=== PATIENT | male | born 1995 | race African-American/Black ===

== ENCOUNTER 2020-03-19 14:53 | Emergency (ER) | payer SELFPAY ==
--- NOTE | 2020-03-19 14:59 | ER Document Report ---
ED General - General Chief Complaint: Vomiting Stated Complaint: VOMITING Time Seen by Provider: 03/19/20 14:59 Primary Care Provider: BAL GANT MD [COMMUNITY BASED STAFF] - Follow up tomorrow ANIL CONNELLY MD [COMMUNITY BASED STAFF] - Follow up as needed - [facility] Notes: 24-year-old male presents to the emergency room today for complaints of feeling dehydrated after drinking 240 ounce beers and taking 30 mg Percocet last night, states he was outside today and he started to feel his heart race. Patient states that he drinks 1520 ounce glasses of water. He initially called EMS and they advised him to just monitor. He called them back 15 minutes later and they brought him to the emergency room today. Patient states his last BM was this morning. Patient denies any cardiac history. States sometimes he feels today like his heart was racing. Aside from the Percocet denies any other illicit drug use. Denies fevers, chills, chest pain shortness of breath, dyspnea, nausea, vomiting, diarrhea, abdominal pain, hematuria,blurred vision, double vision, loss of vision, speech changes, LH, dizziness, syncope, headaches, wheezing, ST, URI, neck pain, weakness, bowel or bladder dysfunction, saddle anesthesia, numbness or tingling in bilateral upper or lower extremities equally, muscle paralysis, weakness in bilateral upper or lower extremities equally or rash. Denies IV drug use. MEDICATIONS: I agree with the patient medications as charted by the RN. ALLERGIES: I agree with the allergies as charted by the RN. PAST MEDICAL HISTORY/PAST SURGICAL HISTORY: Reviewed and agree as charted by RN. SOCIAL HISTORY: Reviewed and agree as charted by RN. FAMILY HISTORY: No significant familial comorbid conditions directly related to patient complaint EXAM: Reviewed vital signs as charted by RN. REVIEW OF SYSTEMS:reviewed vital signs by RN CONSTITUTIONAL : Denies fever, chills, or sweats. Denies recent illness. EENT: Denies eye, ear, throat, or mouth pain or symptoms. Denies nasal or sinus congestion or discharge. Denies throat, tongue, or mouth swelling or difficulty swallowing. CARDIOVASCULAR: Denies chest pain. Denies palpitations or racing or irregular heart beat. Denies ankle edema. RESPIRATORY: Denies cough, cold, or chest congestion. Denies shortness of breath, difficulty breathing, or wheezing. GASTROINTESTINAL: Denies abdominal pain or distention. Denies nausea, vomiting, or diarrhea. Denies blood in vomitus, stools, or per rectum. Denies black, tarry stools. Denies constipation. GENITOURINARY: Reports increased urination. denies difficulty urinating, painful urination, burning, frequency, blood in urine, or discharge. MUSCULOSKELETAL: Denies back or neck pain or stiffness. Denies joint pain or swelling. SKIN: Denies rash, lesions or sores. HEMATOLOGIC : Denies easy bruising or bleeding. LYMPHATIC: Denies swollen, enlarged glands. NEUROLOGICAL: Denies confusion or altered mental status. Denies passing out or loss of consciousness. Denies dizziness or lightheadedness. Denies headache. Denies weakness or paralysis or loss of use of either side. Denies problems with gait or speech. Denies sensory loss, numbness, or tingling. Denies seizures. PSYCHIATRIC: Denies anxiety or stress. Denies depression, suicidal ideation, or homicidal ideation. ALL OTHER SYSTEMS REVIEWED AND NEGATIVE. Dictation was performed using [employer] voice recognition software PHYSICAL EXAMINATION: GENERAL: Well-appearing, well-nourished and in no acute distress. HEAD: Atraumatic, normocephalic. EYES: Pupils equal round and reactive to light, extraocular movements intact, sclera anicteric, conjunctiva are normal. ENT: Nares patent, oropharynx clear without exudates. Moist mucous membranes. NECK: Normal range of motion, supple without lymphadenopathy LUNGS: Breath sounds clear to auscultation bilaterally and equal. No wheezes ra les or rhonchi. HEART: Regular rate and rhythm without murmurs ABDOMEN: Soft, nontender, nondistended abdomen. No guarding, no rebound. No masses appreciated. Musculoskeletal: Normal range of motion, no pitting or edema. No cyanosis. NEUROLOGICAL: Cranial nerves grossly intact. Normal speech, normal gait. Normal sensory, motor exams PSYCH: Normal mood, normal affect. SKIN: Warm, Dry, normal turgor, no rashes or lesions noted. - Related Data Allergies/Adverse Reactions: No Known Allergies Allergy (Verified 03/19/20 15:11) Past Medical History - General Information source: Patient - Social History Smoking Status: Unknown if Ever Smoked Family History: Reviewed & Not Pertinent Physical Exam - Vital signs Vitals: Temp Pulse Resp BP Pulse Ox 97.6 F 86 16 147/84 H 99 03/19/20 15:00 03/19/20 15:00 03/19/20 15:00 03/19/20 15:00 03/19/20 15:00 Course - Re-evaluation Re-evalutation: 03/19/20 16:36 Afebrile vital stable no distress. Nurses notes reviewed. CBC negative for leukocytosis or anemia, CMP negative for hepatic or renal dysfunction. Magnesium was normal. urinalysis is normal, specific gravity is 1.001, patient is very hydrated. Otherwise urinalysis is unremarkable. Chest x-ray unremarkable troponin 0.012. Urine drug screen does show that patient tested positive for amphetamines. TSH was slightly showing hyperthyroidism, his free T3 3 was normal. EKG shows a heart rate of 88, sinus rhythm. No prior EKG to compare to. Patient has a heart score 0. Has a 0.9-1.7 risk of adverse cardiac event. Discussed with patient that he should not be taking methamphetamines unless it is prescribed to him. Advised to hold off from drinking so much fluid, but his electrolytes are completely normal. No hepatic or renal dysf unction. After performing a Medical Screening Examination, I estimate there is LOW risk for RUPTURED ESOPHAGUS, PNEUMOTHORAX, PULMONARY EMBOLISM, ACUTE CORONARY SYNDROME, OR THORACIC AORTIC DISSECTION, thus I consider the discharge disposition reasonable. I have reevaluated this patient multiple times and no significant life threatening changes are noted. The patient and I have discussed the diagnosis and risks, and we agree with discharging home with close follow- up. We also discussed returning to the Emergency Department immediately if new or worsening symptoms occur. We have discussed the symptoms which are most concerning (e.g., bloody sputum, worsening pain or shortness of breath) that necessitate immediate return. 03/19/20 19:32 - Vital Signs Vital signs: Temp Pulse Resp BP Pulse Ox 97.6 F 86 20 137/83 H 98 03/19/20 15:11 03/19/20 15:00 03/19/20 18:00 03/19/20 17:01 03/19/20 18:00 - Laboratory Result Diagrams: 03/19/20 15:15 03/19/20 15:15 Laboratory results interpreted by me: 03/19/20 15:15 TSH 0.32 L - EKG Interpretation by Me EKG shows normal: Sinus rhythm Rate: Normal Rhythm: NSR When compared to previous EKG there are: Previous EKG unavailable Additional EKG results interpreted by me: 03/19/20 16:[address] segment elevation. HR 88 03/19/20 16:31 Discharge - Discharge Clinical Impression: Dehydration, Methamphetamine use, Palpitations Condition: Good Disposition: HOME, SELF-CARE Instructions: Dehydration ([facility]), Palpitations (Irregular or Rapid Heartrate) ([facility]) Additional Instructions: All of your lab work was normal aside from your thyroid level showed slight hyperthyroidism. please follow up with your pcp regarding this. your urine did show that you had amphetamines in your system, this likely could be precipitating your palpitations. Is advised that you discontinue using any amphetamine use. You are fully hydrated, there is no need for you to be drinking 15 glasses of water at once. Only drink when you are thirsty. Due to the excessive amount of water you drink this is why you are urinating so much. Please follow-up with your primary care provider within the next 24 to 48 hours. Return immediately for any new or worsening symptoms. Follow up with primary care provider, call tomorrow to make followup appointment. Referrals: BAL GANT MD [COMMUNITY BASED STAFF] - Follow up tomorrow ANIL CONNELLY MD [COMMUNITY BASED STAFF] - Follow up as needed
[2020-03-19 15:29] LABS: ABSOLUTE EOSINOPHILS # (AUTO) 0.1 10^3/uL (0.0-0.6); ABSOLUTE LYMPHOCYTES (AUTO) 1.8 10^3/uL (0.5-4.7); ABSOLUTE MONOCYTES (AUTO) 0.5 10^3/uL (0.1-1.4); ABSOLUTE NEUT (AUTO) 5.5 10^3/uL (1.7-8.2); BASOPHILS % (AUTO) 0.4 % (0-2); EOSINOPHILS % (AUTO) 1.6 % (0-6); LYMPHOCYTES % (AUTO) 23.2 % (13-45); MEAN CORPUSCULAR HEMOGLOBIN 27.3 pg (27.0-33.4); MEAN CORPUSCULAR HGB CONC 33.4 g/dL (32.0-36.0); MEAN CORPUSCULAR VOLUME 82 fl (80-97); MONOCYTES % (AUTO) 6.1 % (3-13); PLATELET COUNT 269 10^3/uL (150-450); RED BLOOD COUNT 5.52 10^6/uL (4.35-5.55); RED CELL DISTRIBUTION WIDTH 13.7 % (11.5-14.0); SEGMENTED NEUTROPHILS % (AUTO) 68.7 % (42-78); TOTAL CELLS COUNTED % (AUTO) 100 %
[2020-03-19 15:37] LABS: APPEARANCE,URINE CLEAR; BILIRUBIN,URINE NEGATIVE (NEGATIVE); COLOR,URINE COLORLESS; GLUCOSE, URINE NEGATIVE (NEGATIVE); KETONES,URINE NEGATIVE (NEGATIVE); LEUKOCYTE ESTERASE,URINE NEGATIVE (NEGATIVE); NITRITE,URINE NEGATIVE (NEGATIVE); PROTEIN,URINE NEGATIVE (NEGATIVE); URINE SPECIFIC GRAVITY 1.001; UROBILINOGEN,URINE NEGATIVE mg/dL (<2.0)
--- NOTE | 2020-03-19 15:44 | RADIOLOGY REPORT (SQ) ---
EXAM DESCRIPTION: CHEST 2 VIEWS IMAGES COMPLETED DATE/TIME: 03/19/2020 2:28 pm REASON FOR STUDY: chest pain, palpitations COMPARISON: None. EXAM PARAMETERS: NUMBER OF VIEWS: two views TECHNIQUE: Digital Frontal and Lateral radiographic views of the chest acquired. RADIATION DOSE: NA LIMITATIONS: none FINDINGS: LUNGS AND PLEURA: No opacities, masses or pneumothorax. No pleural effusion. MEDIASTINUM AND HILAR STRUCTURES: No masses or contour abnormalities. HEART AND VASCULAR STRUCTURES: Heart normal size. No evidence for failure. BONES: No acute findings. HARDWARE: None in the chest. OTHER: No other significant finding. IMPRESSION: NO ACUTE RADIOGRAPHIC FINDING IN THE CHEST. TECHNICAL DOCUMENTATION: JOB ID: [id number] 2010 [employer]- All Rights Reserved Reading location - IP/workstation name: [email or web address]
[2020-03-19 15:47] LABS: ALBUMIN 4.5 g/dL (3.5-5.0); ALKALINE PHOSPHATASE 67 U/L (38-126); ANION GAP 8 (5-19); ASPARTATE AMINO TRANSFERASE 26 U/L (17-59); BILIRUBIN,DIRECT 0.3 mg/dL (0.0-0.4); BILIRUBIN,TOTAL 0.5 mg/dL (0.2-1.3); BLOOD UREA NITROGEN 9 mg/dL (7-20); CALCIUM 9.4 mg/dL (8.4-10.2); CARBON DIOXIDE 28 mmol/L (22-30); CHLORIDE 107 mmol/L (98-107); GLUCOSE 86 mg/dL (75-110); TOTAL PROTEIN 7.3 g/dL (6.3-8.2)
[2020-03-19 16:07] LABS: URINE BARBITURATES SCREEN NEGATIVE; URINE BENZODIAZEPINES SCREEN NEGATIVE; URINE COCAINE SCREEN NEGATIVE; URINE MARIJUANA (THC) SCREEN NEGATIVE; URINE METHADONE SCREEN NEGATIVE; URINE PHENCYCLIDINE SCREEN NEGATIVE
[2020-03-19 16:08] LABS: URINE AMPHETAMINES SCREEN UNCONFIRMED POSITIVE
[2020-03-19 17:49] VITALS: BP 137/83
--- NOTE | 2020-03-19 20:36 | EKG REPORT ---
SEVERITY:- ABNORMAL ECG - SINUS RHYTHM PROBABLE LEFT VENTRICULAR HYPERTROPHY INFERIOR Q WAVES, PROBABLY NORMAL VARIATION : Confirmed by: Maximus Salazar MD 19-Mar-2020 20:36:10
== END 2020-03-19 18:25 | disposition home or self-care (01) ==
LOC: ER 14:53
DX: E86.0 Dehydration (principal); R11.10 Vomiting, unspecified; R00.2 Palpitations; F15.99 Other stimulant use, unspecified with unspecified stimulant-induced disorder
CPT/HCPCS: 36415; 71046; 80053; 80307; 81001; 83735; 84443; 84481; 84484; 85025; 93005; 93010; 99285

== ENCOUNTER 2020-07-22 14:20 | Emergency (ER) | payer SELFPAY ==
[2020-07-22 14:40] VITALS: BP 100/73
--- NOTE | 2020-07-22 16:41 | RADIOLOGY REPORT (SQ) ---
EXAM DESCRIPTION: U/S SCROTUM W/DOPPLER IMAGES COMPLETED DATE/TIME: 07/22/2020 3:27 pm REASON FOR STUDY: R testicular pain COMPARISON: None. TECHNIQUE: Static and realtime alberts scale imaging of the scrotum and testes. Selected color Doppler and spectral images recorded to document blood flow. LIMITATIONS: None. FINDINGS: RIGHT: TESTICLE: Normal size. Normal echotexture. Normal blood flow. No mass. EPIDIDYMIS: Normal. HYDROCELE OR VARICOCELE: No. HERNIA OR EXTRA-TESTICULAR MASS: No. OTHER: No other significant finding. LEFT: TESTICLE: Normal size. Normal echotexture. Normal blood flow. No mass. EPIDIDYMIS: Normal. HYDROCELE OR VARICOCELE: No. HERNIA OR EXTRA-TESTICULAR MASS: No. OTHER: No other significant finding. IMPRESSION: NORMAL SCROTAL ULTRASOUND. NO EVIDENCE OF TESTICULAR MASS OR TORSION. TECHNICAL DOCUMENTATION: JOB ID: [id number] 2010 [employer]- All Rights Reserved Reading location - IP/workstation name: [email or web address]
--- NOTE | 2020-07-22 17:02 | ER Document Report ---
HPI - HPI Time Seen by Provider: 07/22/20 16:03 Notes: 24-year-old male patient presenting to the emergency department chief complaint of right testicular pain that has now resolved. 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 He s tates he had a severe pain for a few minutes and then the pain went away. He states he has not had pain for at least 1 hour now. He denies any dysuria, urinary frequency, fever, chills, nausea or vomiting. Past Medical History - General Information source: Patient - Social History Smoking Status: Current Some Day Smoker Family History: Reviewed & Not Pertinent - Medical History Medical History: Negative Psychiatric Medical History: Reports: Hx Bipolar Disorder, Hx Depression Vertical Provider Document - CONSTITUTIONAL Notes: PHYSICAL EXAMINATION: GENERAL: Well-appearing, well-nourished and in no acute distress. HEAD: Atraumatic, normocephalic. EYES: Pupils equal round extraocular movements intact, conjunctiva are normal. ENT: Nares patent NECK: Normal range of motion LUNGS: No respiratory distress Musculoskeletal: Normal range of motion NEUROLOGICAL: Normal speech, normal gait. PSYCH: Normal mood, normal affect. SKIN: Warm, Dry, normal turgor, no rashes or lesions noted. Course - Re-evaluation Re-evalutation: Patient eloped prior to nurse giving discharge instructions. - Vital Signs Vital signs: Temp Pulse Resp BP Pulse Ox 98.4 F 97 18 100/73 100 07/22/20 14:37 07/22/20 14:37 07/22/20 14:37 07/22/20 14:37 07/22/20 14:37 - Laboratory Results Critical Laboratory Results Reviewed: No Critical Results - Radiology Results Critical Radiology Results Reviewed: No Critical Results Discharge - Discharge Clinical Impression: Testicular pain Qualifiers: Laterality: right Qualified Code(s): N50.811 - Right testicular pain Condition: Stable Disposition: HOME, SELF-CARE Additional Instructions: Your ultrasound was normal. Please return if any new or worsening symptoms appear.
== END 2020-07-22 17:31 | disposition home or self-care (01) ==
LOC: ER 14:20
DX: N50.811 Right testicular pain (principal); F17.200 Nicotine dependence, unspecified, uncomplicated
CPT/HCPCS: 76870; 93976; 99284